=== PATIENT | female | born 1940 | race Asian ===

== ENCOUNTER 2016-05-07 16:18 | Emergency (ER) | payer OTHER ==
[2016-05-07] MEDS ORDERED: SODIUM CHLORIDE 0.9% 500 ML IV STA (16:33)
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
--- NOTE | 2016-05-07 18:02 | XR ---
EXAMINATION TYPE: XR cervical spine comp DATE OF EXAM: 05/07/2016 5:55 PM COMPARISON: NONE HISTORY: Pain TECHNIQUE: 5 views FINDINGS: There is narrowing at C5-6 C6-7 disc spaces with spurring of the endplates. Posterior eleme nts are intact. Atlantoaxial facet joint is not definitely displaced. There is suboptimal visualizati on. There are no cervical ribs. IMPRESSION: Moderate spondylosis at C5-6 C6-7. No fracture seen.
[2016-05-07 18:35] VITALS: BP 124/57; PULSE 63; RESP 16; TEMP 96.9
== END 2016-05-07 18:35 | disposition home or self-care (01) ==
LOC: SUPCPDRO 16:18 → EC 16:18 → EEVIPCON 16:18 → EC 18:35
DX: M48.32 Traumatic spondylopathy, cervical region (principal); M19.90 Unspecified osteoarthritis, unspecified site; Z85.3 Personal history of malignant neoplasm of breast; Z79.899 Other long term (current) drug therapy; V47.5XXA Car driver injured in collision with fixed or stationary object in traffic accident, initial encounter
CPT/HCPCS: 72050; 99284